=== PATIENT | female | born 1935 | race Caucasian/White ===

== ENCOUNTER 2017-03-11 17:55 | Inpatient (IN) | payer OTHER, BC ==
[~2017-03-11] VITALS: Ht 157.5 cm; Wt 68.0 kg
[2017-03-11 19:58] LABS: BASOPHIL % 0.1 % (0-2); PLATELET COUNT 330 x10^3mcL (130-400); RED CELL DISTRIBUTION WIDTH 14.1 % (11.5-14.5)
[2017-03-11 20:10] LABS: CALCIUM 9.2 mg/dL (8.5-10.1); CARBON DIOXIDE 23.6 mmol/L (21-32); CHLORIDE SERUM 104 mmol/L (98-107); CREATININE SERUM 0.7 mg/dL (0.6-1.0); GLUCOSE SERUM 118 mg/dL (74-106); POTASSIUM SERUM 3.8 mmol/L (3.5-5.1); SODIUM SERUM 140 mmol/L (136-145)
[2017-03-11 20:16] LABS: ALBUMIN 3.5 g/dL (3.4-5.0); ALKALINE PHOSPHATASE 121 U/L (46-116); ALT/SGPT 29 U/L (14-59); AST/SGOT 24 U/L (15-37); BILIRUBIN TOTAL 0.88 mg/dL (0.20-1.00); TOTAL PROTEIN, SERUM 6.9 g/dL (6.4-8.2)
[2017-03-11 20:43] LABS: AMPHETAMINE QUAL UR NONE DETECTED (NEG <=1000)
[2017-03-11 20:53] LABS: T4(THYROXINE) 7.4 ug/dL (4.7-13.3)
[2017-03-11] MEDS ORDERED: LOSARTAN POTASS25 M1 PO (22:08)
[2017-03-11] MEDS ORDERED: SYN15 PO (22:09)
[2017-03-11] MEDS ORDERED: NOR5 PO (22:09)
[2017-03-11] MEDS ORDERED: PRAVACHOL20 MG PO (22:10)
[2017-03-11] MEDS ORDERED: ASPIR 8181 MG PO (22:10)
[2017-03-11 22:36] VITALS: BP 139/73
[2017-03-11 22:37] VITALS: BP 139/73
[2017-03-12 06:14] VITALS: BP 150/57
[2017-03-12 06:54] LABS: T3 TOTAL 0.87 ng/mL
[2017-03-12 07:01] LABS: CHOLESTEROL/HDL RATIO 3.8; PHOSPHOROUS 3.1 mg/dL (2.5-4.9)
[2017-03-12 07:13] LABS: FREE T4 1.1 ng/dL (0.76-1.46); FREE THYROXINE INDEX 1.9 ug/dL (1.4-4.5); T4(THYROXINE) 7.1 ug/dL (4.7-13.3)
[2017-03-12 07:34] LABS: MAGNESIUM 2.3 mg/dL (1.8-2.4)
[2017-03-12 07:46] LABS: BASOPHIL % 0.3 % (0-2); PLATELET COUNT 242 x10^3mcL (130-400); RED CELL DISTRIBUTION WIDTH 13.8 % (11.5-14.5)
[2017-03-12 08:11] LABS: CALCIUM 8.1 mg/dL (8.5-10.1); CHLORIDE SERUM 110 mmol/L (98-107); CREATININE SERUM 0.6 mg/dL (0.6-1.0); GLUCOSE SERUM 89 mg/dL (74-106); POTASSIUM SERUM 3.6 mmol/L (3.5-5.1); SODIUM SERUM 143 mmol/L (136-145)
[2017-03-12 08:48] LABS: CARBON DIOXIDE 21.8 mmol/L (21-32)
[2017-03-12 10:19] VITALS: BP 143/54
[2017-03-12 13:35] VITALS: BP 153/61
[2017-03-12 19:32] LABS: microscopic required? NO
[2017-03-12 19:41] LABS: UA SPECIFIC GRAVITY <=1.005 (1.005-1.035); urine erythrocyte NEGATIVE (NEGATIVE)
[2017-03-12 21:51] VITALS: BP 136/62; BP 36/62
[2017-03-13 05:35] VITALS: BP 137/56
[2017-03-13 06:21] LABS: BASOPHIL % 0.6 % (0-2); PLATELET COUNT 275 x10^3mcL (130-400); RED CELL DISTRIBUTION WIDTH 13.8 % (11.5-14.5)
[2017-03-13 06:45] LABS: CALCIUM 8.7 mg/dL (8.5-10.1); CARBON DIOXIDE 25.9 mmol/L (21-32); CHLORIDE SERUM 106 mmol/L (98-107); CREATININE SERUM 0.6 mg/dL (0.6-1.0); GLUCOSE SERUM 73 mg/dL (74-106); MAGNESIUM 2.2 mg/dL (1.8-2.4); PHOSPHOROUS 2.8 mg/dL (2.5-4.9); POTASSIUM SERUM 3.7 mmol/L (3.5-5.1); SODIUM SERUM 142 mmol/L (136-145)
[2017-03-13 08:40] VITALS: BP 113/68
[2017-03-13] MEDS ORDERED: ZOFI IV (10:24)
[2017-03-13] MEDS ORDERED: ZOFI PO (10:54)
[2017-03-13 13:06] VITALS: BP 113/68
== END 2017-03-13 13:50 | disposition home or self-care (01) | DRG 391 ==
LOC: ED 17:55 → DU 21:13
PROVIDERS: Emergency Medicine; Family Medicine
DX: K52.9 Noninfective gastroenteritis and colitis, unspecified (principal); N17.0 Acute kidney failure with tubular necrosis; K56.7 Ileus, unspecified; E86.0 Dehydration; I10 Essential (primary) hypertension; E03.9 Hypothyroidism, unspecified; R00.0 Tachycardia, unspecified; E78.5 Hyperlipidemia, unspecified; Z96.651 Presence of right artificial knee joint; Z68.27 Body mass index [BMI] 27.0-27.9, adult
CPT/HCPCS: 83880; 84439; 87804; J1885; J2405; J2550; J3490; J7030; Q9966; Q9967